=== PATIENT | female | born 1950 | race Caucasian/White ===

== ENCOUNTER 2018-11-12 20:19 | Emergency (ER) | payer MEDICARE, OTHER ==
[~2018-11-12] VITALS: Ht 167.6 cm; Wt 78.2 kg
[2018-11-12 20:20] VITALS: TEMP 98.1
[2018-11-12] MEDS ORDERED: ZOCOR 40MG40 MG PO (21:43)
[2018-11-12] MEDS ORDERED: FOSAMAX 10M10 MG/TAB PO (21:43)
[2018-11-12] MEDS ORDERED: NEXIUM 40MG40 MG PO (21:43)
[2018-11-12] MEDS ORDERED: PRILOSEC10 MG PO (21:43)
[2018-11-12] MEDS ORDERED: ASPIRIN 81M81 MG/TA2 PO (21:43)
[2018-11-12] MEDS ORDERED: NORCO 325 MG-51 TAB PO (22:03)
[2018-11-12 22:29] VITALS: BP 129/70; PULSE 77
== END 2018-11-12 22:29 | disposition home or self-care (01) ==
LOC: COL.ER 20:19
DX: S82.841A Displaced bimalleolar fracture of right lower leg, initial encounter for closed fracture (principal); Z79.82 Long term (current) use of aspirin; W10.9XXA Fall (on) (from) unspecified stairs and steps, initial encounter; X50.1XXA Overexertion from prolonged static or awkward postures, initial encounter
CPT/HCPCS: J3010; Q4045